=== PATIENT | male | born 1955 | race Caucasian/White ===

== ENCOUNTER 2023-06-10 00:25 | Emergency (ER) | payer BC, OTHER ==
[~2023-06-10] VITALS: Ht 182.9 cm; Wt 93.6 kg
[~2023-06-10 00:25] MED LIST: ALB0.5UD IH; CLOP75TA34 PO; FAMO-129 PO; NIAC1000 PO; NITR0.4T48 SL; ROSU10TA2 PO
[2023-06-10] MEDS: bacitracin 15gm ointment TP ONE (01:24)
[2023-06-10] MEDS: TETanus/Pertussis (Acell)/Diphther VAC/PF (Tdap-Adult) 0.5ml syringe IMVAC ONE (01:25)
[2023-06-10] MEDS ORDERED: SULF1TAB49 PO (01:26)
[2023-06-10] MEDS: sulfamethoxazole/trimethoprim DS (800/160mg) tablet PO ONE (01:30)
[2023-06-10 01:37] VITALS: BP 151/77; PULSE 54; RESP 18; TEMP 97.9; O2SAT 94
== END 2023-06-10 01:40 | disposition home or self-care (01) ==
LOC: ER 00:26
DX: S62.637A Displaced fracture of distal phalanx of left little finger, initial encounter for closed fracture (principal); Z88.8 Allergy status to other drugs, medicaments and biological substances; Z91.09 Other allergy status, other than to drugs and biological substances; Z79.899 Other long term (current) drug therapy; W23.0XXA Caught, crushed, jammed, or pinched between moving objects, initial encounter; Y93.89 Activity, other specified; Y92.89 Other specified places as the place of occurrence of the external cause; Y99.8 Other external cause status
CPT/HCPCS: 12001; 73140; 90471; 90715; 99283